=== PATIENT | female | born 1985 | race Caucasian/White ===

== ENCOUNTER 2018-02-14 23:55 | Emergency (ER) | payer OTHER ==
[~2018-02-14] VITALS: Ht 165.1 cm; Wt 145.6 kg
[~2018-02-14 23:55] MED LIST: FIORICET 50-301 EACH PO; MACROBID100 MG PO; ONDANSETRON HCL8 MG PO; PROAIR RESPICL90 MCG IH; TYLENOL EXTRA500 MG PO
[2018-02-15 00:44] LABS: HEMATOCRIT 39.2 % (36.0-46.0); HEMOGLOBIN 12.3 G/DL (11.9-15.5); MCHC 31.4 G/DL (30.0-36.0); MCV 86.2 FL (83-99); PLATELET COUNT 305 K/uL (156-360); RBC DIS.WIDTH-CV 13.5 % (11.8-14.6); RBC DIS.WIDTH-SD 42.2 % (39-53); RED BLOOD COUNT 4.55 M/uL (3.80-5.20)
[2018-02-15 00:48] LABS: APPEARANCE CLEAR ((CLEAR)); BILIRUBIN NEGATIVE; BLOOD SMALL; COLOR YELLOW ((YELLOW)); GLUCOSE (STRIP) NEGATIVE; KETONES NEGATIVE; LEUKOCYTES NEGATIVE; NITRITE NEGATIVE; PROTEIN (STRIP) NEGATIVE; SPECIFIC GRAVITY 1.016 (1.000-1.030); UROBILINOGEN 0.2 MG/DL (0.2-1.0)
[2018-02-15 00:50] LABS: BACTERIA NONE SEEN /HPF; EPITHELIAL CELLS 1+ /HPF; HYALINE CASTS 0-5 /LPF; MUCUS TRACE /LPF; RED BLOOD CELLS 0-5 /HPF (0-5); UCUL ADDED? YES
[2018-02-15 00:57] LABS: ALBUMIN 4.1 g/dL (3.2-4.8); CHLORIDE 107 mEq/L (99-109); POTASSIUM 3.7 mEq/L (3.7-5.4); SODIUM 141 mEq/L (136-147)
[2018-02-15 00:59] LABS: GLUCOSE 87 mg/dL (70-99); TOTAL PROTEIN 7.9 g/dL (6.4-8.3)
[2018-02-15 01:01] LABS: TOTAL BILIRUBIN 0.3 mg/dL (0.0-1.0)
[2018-02-15 01:03] LABS: ALKALINE PHOSPHATASE 59 IU/L (3-129); GFR ESTIMATE (CALCULATED) > 59 mL/min/
[2018-02-15 01:04] LABS: UREA NITROGEN (BUN) 16 mg/dL (9-23)
[2018-02-15 01:05] LABS: AST (GOT) 11 IU/L (2-34)
[2018-02-15 01:06] LABS: ALT (GPT) 13 IU/L (3-49); LIPASE 30 U/L (1.0-51.0)
[2018-02-15 01:16] LABS: QUANTITATIVE HCG < 4.0 MIU/ML
[2018-02-15] MEDS ORDERED: VALIUM5 MG PO (04:18)
[2018-02-15] MEDS ORDERED: NAPROSYN500 MG PO (04:18)
[2018-02-15 04:31] VITALS: BP 144/88
== END 2018-02-15 04:32 | disposition home or self-care (01) ==
LOC: EME 23:55 → EXP 23:55
DX: N83.201 Unspecified ovarian cyst, right side (principal); R03.0 Elevated blood-pressure reading, without diagnosis of hypertension; Z87.440 Personal history of urinary (tract) infections; Z87.891 Personal history of nicotine dependence; Z88.5 Allergy status to narcotic agent; Z88.8 Allergy status to other drugs, medicaments and biological substances
CPT/HCPCS: 74176; 80053; 81003; 83690; 84702; 85027; 87086; 99281; 99284